=== PATIENT | male | born 1965 | race Caucasian/White ===

== ENCOUNTER 2016-12-03 15:22 | Emergency (ER) | payer OTHER ==
--- NOTE | 2016-12-03 17:54 | DIAGNOSTIC IMAGING REPORT ---
PROCEDURE: XR ANKLE 3 OR 4 VIEWS - RIGHT INDICATION: TRAUMA/INJURY TECHNIQUE: Four views. COMPARISON: None. FINDINGS: Mild soft tissue swelling over the lateral malleolus. Osseous structures and joint spaces are normal. IMPRESSION: 1. Mild soft tissue swelling over the lateral malleolus. 2. Otherwise negative right ankle.
--- NOTE | 2016-12-03 19:27 | DIAGNOSTIC IMAGING REPORT ---
PROCEDURE: XR FOOT 3 VIEWS - RIGHT INDICATION: TRAUMA/INJURY TECHNIQUE: Four views. COMPARISON: None. FINDINGS: There is a 4 mm avulsion fracture of the anterior process of the right os calcis. There mild degenerative change of the right first metatarsal phalangeal joint. The rest of the osseous structures and joint spaces are normal. IMPRESSION: 1. Mildly distracted 4 mm avulsion fracture of the anterior process of the calcaneus. 2. Mild degenerate change of the right first metatarsal phalangeal joint. 3. Otherwise negative right foot. 4. Findings discussed with CHANDRIKA Aburto.
--- NOTE | 2016-12-03 19:48 | ED CLINICAL REPORT ---
Clinical Report - Physicians/Mid Levels [facility] [address] [place] [address] 12/03/2016 15:27 Patient: SUKUMAR OVALLE Time Seen: 18:54; initial patient contact, initial documentation, patient care assumed. Arrived- By private vehicle. Historian- patient. HISTORY OF PRESENT ILLNESS Chief Complaint: Injury to the right foot. The injury happened today. Occurred at work. ( stepping off ladder, slipped or missed a step, stepped into crate and hurt foot). The patient sustained a twisting injury. Patient is experiencing severe pain. Patient denies injury to the head or neck. No other injury. REVIEW OF SYSTEMS The patient sustained a laceration. He complains of pain on weight bearing. He has had swelling. No tingling, weakness or numbness. All systems otherwise negative, except as recorded above. PAST HISTORY See nurses notes. PROBLEMS: Tetanus Status. Laceration. Immunizations. Hypertension. --16:54 Evie Arias R.N. ADDITIONAL SURGERIES: Knee Surgery. Tympanostomy Tubes. --16:54 Evie Arias R.N. SOCIAL HISTORY Light tobacco smoker. Occasional alcohol use. History of occasional drug use: marijuana. No recent travel. Is a local resident. ADDITIONAL NOTES The nursing notes have been reviewed with agreement regarding the chief complaint, HPI, ROS, PMH and patient medications and allergies. PHYSICAL EXAM Vital Signs: 12/03/2016 16:52 BP: 174/92. HR: 91. RR: 18. O2 saturation: 100%. Temp: 98.2 F. Pain level now: 8/10. Have been reviewed as abnormal and appear to be correct. Hypertensive. Heart rate normal. Respiratory rate normal. Temperature normal. Oxygen saturation normal. Appearance: Alert. Oriented X3. No acute distress. Head: Head atraumatic. Eyes: Pupils equal, round and reactive to light. Eyes normal inspection. Respiratory: No respiratory distress. Skin: Skin intact. Skin warm and dry. Extremities: Foot injury present. Right foot: mild tenderness and swelling and medium sized ecchymosis located in the dorsal lateral aspect of the foot. Limited weight bearing secondary to pain. Neurovascular intact distally. No erythema, laceration, abrasion, puncture wound or foreign body. No deformity. No ankle injury. Foot and ankle exam otherwise negative. Extremities otherwise negative. Neuro, Vascular and Tendons: Vascular status intact. Sensation intact. Motor intact. Tendon function intact. Gait: Abnormal gait. Gait not tested due to pain. Neuro: Oriented X 3. No motor deficit. No sensory deficit. Note: isolated injury to foot. LABS, X-RAYS, AND EKG X-Rays: Right ankle negative. Right foot. Rt Ankle X-ray: (IMPRESSION: 1. Mild soft tissue swelling over the lateral malleolus. 2. Otherwise negative right ankle. Electronically Final signed by:Ramon Acuña MD 12/03/2016 5:51:21 PM). The X-rays were interpreted by the radiologist and contemporaneously by me. Rt Foot X-ray: (IMPRESSION: 1. Mildly distracted 4 mm avulsion fracture of the anterior process of the calcaneus. 2. Mild degenerate change of the right first metatarsal phalangeal joint. 3. Otherwise negative right foot. 4. Findings discussed with CHANDRIKA Aburto. Electronically Final signed by:Ramon Acuña MD 12/03/2016 7:23:29 PM). The X-rays were interpreted by the radiologist and contemporaneously by me and discussed with the radiologist. PROGRESS AND PROCEDURES Course of Care: 1946. pt telling me he needs to be at work tomorrow, doesn't want the day off, if not needed 19:50 12/03/16. L&I paperwork completed. Patient counseled in person regarding the patient's stable condition, test results and diagnosis. 19:46. Differential Diagnosis: Other possible considerations: fx, contusion, sprain. Above considerations are based on history, physical exam and X-Ray data. Differential diagnosis was discussed with patient. Disposition: Discharged home in good and improved condition (19:48). Condition: good and stable. CLINICAL IMPRESSION Closed nondisplaced avulsion fracture of the body of the right calcaneus. No transverse, oblique, spiral, segmental or comminuted fracture of the foot. No angulated fracture of the foot. Single contusion to the right foot.No hematoma or skin abrasion. INSTRUCTIONS Apply ice for 20 minutes four times a day for one days until better. Don't apply ice directly to skin. Wear boot orthosis until released. Elevate affected areas above chest level for one days until better. Warnings: GENERAL WARNINGS: Return or contact your physician immediately if your condition worsens or changes unexpectedly, if not improving as expected, or if other problems arise. Specifically return if problem worsens. Prescription Medications: Tigrett 5 mg / 325 mg tablets: take 1 to 2 orally every 6 hours as needed for pain. Dispense fifteen (15). No refills. Substitution is permissible. Motrin 800 mg tablets: take 1 tablet orally every 8 hours as needed for pain. Dispense thirty (30). No refills. Substitution is permissible. Follow-up: Screening today revealed the patient's blood pressure to be in the hypertensive range. The patient should follow up with a primary care provider for blood pressure management. Understanding of the discharge instructions verbalized by patient. Follow-up with: Rich Canchola DPM, Podiatry, , [address] [facility], [place], [address] Follow up in about three days even if well. Call for an appointment. Summary of care provided to patient. (Electronically signed by Lisa Arenas A.R.N.P. 12/03/2016 21:11)
--- NOTE | 2016-12-03 19:48 | ED CLINICAL REPORT ---
Clinical Report - Physicians/Mid Levels [facility] [address] [place] [address] 12/03/2016 15:27 Patient: SUKUMAR OVALLE Time Seen: 18:54; initial patient contact, initial documentation, patient care assumed. Arrived- By private vehicle. Historian- patient. HISTORY OF PRESENT ILLNESS Chief Complaint: Injury to the right foot. The injury happened today. Occurred at work. ( stepping off ladder, slipped or missed a step, stepped into crate and hurt foot). The patient sustained a twisting injury. Patient is experiencing severe pain. Patient denies injury to the head or neck. No other injury. REVIEW OF SYSTEMS The patient sustained a laceration. He complains of pain on weight bearing. He has had swelling. No tingling, weakness or numbness. All systems otherwise negative, except as recorded above. PAST HISTORY See nurses notes. PROBLEMS: Tetanus Status. Laceration. Immunizations. Hypertension. --16:54 Evie Arias R.N. ADDITIONAL SURGERIES: Knee Surgery. Tympanostomy Tubes. --16:54 Evie Arias R.N. SOCIAL HISTORY Light tobacco smoker. Occasional alcohol use. History of occasional drug use: marijuana. No recent travel. Is a local resident. ADDITIONAL NOTES The nursing notes have been reviewed with agreement regarding the chief complaint, HPI, ROS, PMH and patient medications and allergies. PHYSICAL EXAM Vital Signs: 12/03/2016 16:52 BP: 174/92. HR: 91. RR: 18. O2 saturation: 100%. Temp: 98.2 F. Pain level now: 8/10. Have been reviewed as abnormal and appear to be correct. Hypertensive. Heart rate normal. Respiratory rate normal. Temperature normal. Oxygen saturation normal. Appearance: Alert. Oriented X3. No acute distress. Head: Head atraumatic. Eyes: Pupils equal, round and reactive to light. Eyes normal inspection. Respiratory: No respiratory distress. Skin: Skin intact. Skin warm and dry. Extremities: Foot injury present. Right foot: mild tenderness and swelling and medium sized ecchymosis located in the dorsal lateral aspect of the foot. Limited weight bearing secondary to pain. Neurovascular intact distally. No erythema, laceration, abrasion, puncture wound or foreign body. No deformity. No ankle injury. Foot and ankle exam otherwise negative. Extremities otherwise negative. Neuro, Vascular and Tendons: Vascular status intact. Sensation intact. Motor intact. Tendon function intact. Gait: Abnormal gait. Gait not tested due to pain. Neuro: Oriented X 3. No motor deficit. No sensory deficit. Note: isolated injury to foot. LABS, X-RAYS, AND EKG X-Rays: Right ankle negative. Right foot. Rt Ankle X-ray: (IMPRESSION: 1. Mild soft tissue swelling over the lateral malleolus. 2. Otherwise negative right ankle. Electronically Final signed by:Ramon Acuña MD 12/03/2016 5:51:21 PM). The X-rays were interpreted by the radiologist and contemporaneously by me. Rt Foot X-ray: (IMPRESSION: 1. Mildly distracted 4 mm avulsion fracture of the anterior process of the calcaneus. 2. Mild degenerate change of the right first metatarsal phalangeal joint. 3. Otherwise negative right foot. 4. Findings discussed with CHANDRIKA Aburto. Electronically Final signed by:Ramon Acuña MD 12/03/2016 7:23:29 PM). The X-rays were interpreted by the radiologist and contemporaneously by me and discussed with the radiologist. PROGRESS AND PROCEDURES Course of Care: 1946. pt telling me he needs to be at work tomorrow, doesn't want the day off, if not needed 19:50 12/03/16. L&I paperwork completed. Patient counseled in person regarding the patient's stable condition, test results and diagnosis. 19:46. Differential Diagnosis: Other possible considerations: fx, contusion, sprain. Above considerations are based on history, physical exam and X-Ray data. Differential diagnosis was discussed with patient. Disposition: Discharged home in good and improved condition (19:48). Condition: good and stable. CLINICAL IMPRESSION Closed nondisplaced avulsion fracture of the body of the right calcaneus. No transverse, oblique, spiral, segmental or comminuted fracture of the foot. No angulated fracture of the foot. Single contusion to the right foot.No hematoma or skin abrasion. INSTRUCTIONS Apply ice for 20 minutes four times a day for one days until better. Don't apply ice directly to skin. Wear boot orthosis until released. Elevate affected areas above chest level for one days until better. Warnings: GENERAL WARNINGS: Return or contact your physician immediately if your condition worsens or changes unexpectedly, if not improving as expected, or if other problems arise. Specifically return if problem worsens. Prescription Medications: [place]cor[place] 5 mg / 325 mg tablets: take 1 to 2 orally every 6 hours as needed for pain. Dispense fifteen (15). No refills. Substitution is permissible. Motrin 800 mg tablets: take 1 tablet orally every 8 hours as needed for pain. Dispense thirty (30). No refills. Substitution is permissible. Follow-up: Screening today revealed the patient's blood pressure to be in the hypertensive range. The patient should follow up with a primary care provider for blood pressure management. Understanding of the discharge instructions verbalized by patient. Follow-up with: Rich Canchola DPM, Podiatry, , [address] [facility], [address], [place], [address] Follow up in about three days even if well. Call for an appointment. Summary of care provided to patient. (Electronically signed by Lisa Arenas A.R.N.P. 12/03/2016 21:11)
--- NOTE | 2016-12-03 19:48 | ED ORDER SUMMARY ---
..... Patient: SUKUMAR OVALLE OrderSheet [facility] VisitID: [id number] [address] [place] [address] 51y, M Registration Date/Time: 12/03/2016 ORDER SHEET Weight: 104.3 kg (stated) Allergies: No Known Drug Allergy GENERAL ORDERS: Ankle 3 or 4V Right (IN WAITING ROOM) Urgent (17:03 12/03/2016 Miryam R.NYuko per protocol) (Ack 17:16 LTapper) (18:53 MCampbell) Foot 3V Right Urgent (19:01 12/03/2016 HBivens A.R.N.P.) (19:12 [facility] ER Repair Armature Winder Helper) Orthopedic Boot (20:16 12/03/2016 HBivens A.R.N.P.) (20:29 [facility] ER Repair Armature Winder Helper) MEDICATION ORDERS: Hydrocodone-APAP PO 5/325 mg (NOW, HIGH ALERT MEDICATION) (19:01 12/03/2016 HBivens A.R.N.P.) (19:14 Anna Marie R.N.) IV FLUIDS: ORDER SHEET NOTES: [Electronically signed by Elizabeth Miner R.N. (20:29 12/03/2016)] [Electronically signed by Lisa ArenasR.N.P. (21:11 12/03/2016)] [Electronically locked/signed by Elizabeth Miner R.N. (20:29 12/03/2016)]
--- NOTE | 2016-12-03 19:48 | ED ORDER SUMMARY ---
..... Patient: SUKUMAR OVALLE OrderSheet [facility] VisitID: [id number] [address] [place] [address] 51y, M Registration Date/Time: 12/03/2016 ORDER SHEET Weight: 104.3 kg (stated) Allergies: No Known Drug Allergy GENERAL ORDERS: Ankle 3 or 4V Right (IN WAITING ROOM) Urgent (17:03 12/03/2016 Miryam R.NYuko per protocol) (Ack 17:16 LTapper) (18:53 MCampbell) Foot 3V Right Urgent (19:01 12/03/2016 HBivens A.R.N.P.) (19:12 [facility] ER Meat Smoker) Orthopedic Boot (20:16 12/03/2016 HBivens A.R.N.P.) (20:29 [facility] ER Meat Smoker) MEDICATION ORDERS: Hydrocodone-APAP PO 5/325 mg (NOW, HIGH ALERT MEDICATION) (19:01 12/03/2016 HBivens A.R.N.P.) (19:14 Anna Marie R.N.) IV FLUIDS: ORDER SHEET NOTES: [Electronically signed by Elizabeth Miner R.N. (20:29 12/03/2016)] [Electronically signed by Lisa ArenasR.N.P. (21:11 12/03/2016)] [Electronically locked/signed by Elizabeth Miner R.N. (20:29 12/03/2016)]
--- NOTE | 2016-12-03 19:48 | ED NURSING NOTES ---
Clinical Report - Nurses [facility] [address] [place] [address] 12/03/2016 15:27 Patient: SUKUMAR OVALLE TRIAGE Triage time 16:52. Acuity: LEVEL 4. Chief Complaint: FALL OFF A LADDER, onto a wood surface (RIGHT ANKLE PAIN stepped off ladder onto wooden crates). Alert. No acute distress. LIEN COMA SCORE: Lien Coma Scale: 15- eyes open spontaneously (4); best verbal response- oriented x 4 (5); best motor response- obeys commands (6). --16:59 Evie Arias R.N. 16:52 12/03/16. BP: 174/92. HR: 91. RR: 18. O2 saturation: 100% on room air. Temp: 98.2 F (oral). Pain level now: 07/07. --16:59 Evie Arias R.N. Weight: 104.3 kg stated. Height/Length: 73 inches Per Patient. BMI: 30.3. --16:54 Evie Arias R.N. Medications None. --16:53 Evie Arias R.N. Medication/allergy information source: the patient. --16:59 Evie Arias R.N. Allergies No Known Drug Allergy. --16:53 Evie Arias R.N. History Arrived by private vehicle. Historian: patient. Accompanied by family. Primary physician (none). This occurred today. Occurred at work. SOCIAL HX: Heavy tobacco smoker- less than 1 pack per day. Occasional alcohol use. History of drug use: marijuana. LEARNING NEEDS ASSESSMENT: The learning needs assessment revealed no barriers. FALL RISK ASSESSMENT: Fall risk assessment completed. Risk factors identified include patient impairment of mobility. FUNCTIONAL ASSESSMENT: Functional assessment performed: independent with the activities of daily living; mobility impairment present- this mobility impairment is a new problem. --16:59 Evie Arias R.N. PROBLEMS: Tetanus Status. Laceration. Immunizations. Hypertension. --16:54 Evie Arias R.N. ADDITIONAL SURGERIES: Knee Surgery. Tympanostomy Tubes. --16:54 Evie Arias R.N. Assessment GENERAL / NEURO / PSYCH: Alert. Oriented X 4. Appears in no acute distress. Patient appears calm and cooperative. ( bruising noted, pain increases with wt bearing). RESPIRATORY: Respirations not labored. SKIN: Skin is warm and dry. --16:59 Evie Arias R.N. Interventions ID band on patient. To treatment room. --16:59 Evie Arias R.N. PHYSICAL ASSESSMENT GENERAL / NEURO / PSYCH: Alert. Oriented X 4. Appears in no acute distress. HEENT: Pupils equal, round and reactive to light. Head non-tender. RESPIRATORY: Respirations not labored. Chest nontender. Breath sounds within normal limits. CVS: Normal heart rate and rhythm. Pulses within normal limits. Capillary refill less than 2 seconds. GI / : Abdomen soft and nontender. EXTREMITIES: Extremities exhibit normal ROM. Neuro-vascular status intact to the extremity. Right ankle: tenderness, swelling and erythema. SKIN: Skin intact. Skin is warm and dry. --18:27 Xin Zepeda R.N. NURSING PROGRESS NOTES 18:27 12/03/16. BP: 172/88. HR: 93. RR: 18. O2 saturation: 100%. Temp: 98.4 F. Pain level now 8/10. --18:28 Xin Zepeda R.N. 19:14 12/03/2016 Hydrocodone-APAP (Hydrocodone-Acetaminophen) PO 5/325 mg Tablets 1 tab given. Allergies verified, confirmed 5 rights and sedative warning given to the patient's family. --19:14 Xin Zepeda R.N. ( Report given to Jordan YORK). --19:27 Xin Zepeda R.N. 20:20 12/03/16. BP: 186/104. HR: 98. RR: 16. O2 saturation: 100%. Temp: 98.2 F. Pain level now 3/10. --20:20 Elizabeth Miner R.N. 20:22. 3D boot applied to right foot by tech; sensation intact and motor function within normal limits. --20:27 Meron, Christopher, ER Back Line Cook. DISPOSITION / DISCHARGE 20:28 12/03/16. Condition at departure: improved and stable. The goals identified in the patient's plan of care were met. No learning barriers present. Discharge instructions provided and reviewed with the patient. Reviewed medication(s) side effects, precautions, dosing and course information. Prescription(s) given to the patient. Reviewed referral to a grade checker for followup. Patient verbalized understanding. Written instructions provided in [place]. The patient was discharged home and accompanied by family. He left the Emergency Department ambulatory and via private vehicle. Family member driving. --20:29 Elizabeth Miner R.N. 20:20 12/03/16. BP: 186/104. HR: 98. RR: 16. O2 saturation: 100%. Temp: 98.2 F. Pain level now 3/10. --20:29 Elizabeth Miner R.N. Departure time: 20:29 Dec 03 2016. --20:29 Elizabeth Miner R.N. Locked/Released at 12/03/2016 20:29 by Elizabeth Miner R.N.
--- NOTE | 2016-12-03 19:48 | ED NURSING NOTES ---
Clinical Report - Nurses [facility] [address] [place] [address] 12/03/2016 15:27 Patient: SUKUMAR OVALLE TRIAGE Triage time 16:52. Acuity: LEVEL 4. Chief Complaint: FALL OFF A LADDER, onto a wood surface (RIGHT ANKLE PAIN stepped off ladder onto wooden crates). Alert. No acute distress. LIEN COMA SCORE: Lien Coma Scale: 15- eyes open spontaneously (4); best verbal response- oriented x 4 (5); best motor response- obeys commands (6). --16:59 Evie Arias R.N. 16:52 12/03/16. BP: 174/92. HR: 91. RR: 18. O2 saturation: 100% on room air. Temp: 98.2 F (oral). Pain level now: 07/07. --16:59 Evie Arias R.N. Weight: 104.3 kg stated. Height/Length: 73 inches Per Patient. BMI: 30.3. --16:54 Evie Arias R.N. Medications None. --16:53 Evie Arias R.N. Medication/allergy information source: the patient. --16:59 Evie Arias R.N. Allergies No Known Drug Allergy. --16:53 Evie Arias R.N. History Arrived by private vehicle. Historian: patient. Accompanied by family. Primary physician (none). This occurred today. Occurred at work. SOCIAL HX: Heavy tobacco smoker- less than 1 pack per day. Occasional alcohol use. History of drug use: marijuana. LEARNING NEEDS ASSESSMENT: The learning needs assessment revealed no barriers. FALL RISK ASSESSMENT: Fall risk assessment completed. Risk factors identified include patient impairment of mobility. FUNCTIONAL ASSESSMENT: Functional assessment performed: independent with the activities of daily living; mobility impairment present- this mobility impairment is a new problem. --16:59 Evie Arias R.N. PROBLEMS: Tetanus Status. Laceration. Immunizations. Hypertension. --16:54 Evie Arias R.N. ADDITIONAL SURGERIES: Knee Surgery. Tympanostomy Tubes. --16:54 Evie Arias R.N. Assessment GENERAL / NEURO / PSYCH: Alert. Oriented X 4. Appears in no acute distress. Patient appears calm and cooperative. ( bruising noted, pain increases with wt bearing). RESPIRATORY: Respirations not labored. SKIN: Skin is warm and dry. --16:59 Evie Arias R.N. Interventions ID band on patient. To treatment room. --16:59 Evie Arias R.N. PHYSICAL ASSESSMENT GENERAL / NEURO / PSYCH: Alert. Oriented X 4. Appears in no acute distress. HEENT: Pupils equal, round and reactive to light. Head non-tender. RESPIRATORY: Respirations not labored. Chest nontender. Breath sounds within normal limits. CVS: Normal heart rate and rhythm. Pulses within normal limits. Capillary refill less than 2 seconds. GI / : Abdomen soft and nontender. EXTREMITIES: Extremities exhibit normal ROM. Neuro-vascular status intact to the extremity. Right ankle: tenderness, swelling and erythema. SKIN: Skin intact. Skin is warm and dry. --18:27 Xin Zepeda R.N. NURSING PROGRESS NOTES 18:27 12/03/16. BP: 172/88. HR: 93. RR: 18. O2 saturation: 100%. Temp: 98.4 F. Pain level now 8/10. --18:28 Xin Zepeda R.N. 19:14 12/03/2016 Hydrocodone-APAP (Hydrocodone-Acetaminophen) PO 5/325 mg Tablets 1 tab given. Allergies verified, confirmed 5 rights and sedative warning given to the patient's family. --19:14 Xin Zepeda R.N. ( Report given to Jordan YORK). --19:27 Xin Zepeda R.N. 20:20 12/03/16. BP: 186/104. HR: 98. RR: 16. O2 saturation: 100%. Temp: 98.2 F. Pain level now 3/10. --20:20 Elizabeth Miner R.N. 20:22. 3D boot applied to right foot by tech; sensation intact and motor function within normal limits. --20:27 Meron, Christopher, ER Moveman. DISPOSITION / DISCHARGE 20:28 12/03/16. Condition at departure: improved and stable. The goals identified in the patient's plan of care were met. No learning barriers present. Discharge instructions provided and reviewed with the patient. Reviewed medication(s) side effects, precautions, dosing and course information. Prescription(s) given to the patient. Reviewed referral to a digital computer systems analyst for followup. Patient verbalized understanding. Written instructions provided in [place]. The patient was discharged home and accompanied by family. He left the Emergency Department ambulatory and via private vehicle. Family member driving. --20:29 Elizabeth Miner R.N. 20:20 12/03/16. BP: 186/104. HR: 98. RR: 16. O2 saturation: 100%. Temp: 98.2 F. Pain level now 3/10. --20:29 Elizabeth Miner R.N. Departure time: 20:29 Dec 03 2016. --20:29 Elizabeth Miner R.N. Locked/Released at 12/03/2016 20:29 by Elizabeth Miner R.N.
--- NOTE | 2016-12-03 21:12 | ED MED RECONCILIATION SUMMARY ---
Patient: SUKUMAR OVALLE Medication Reconciliation Report [facility] VisitID: [id number] [address] [place] [address] 51y, M Registration Date/Time: 12/03/2016 Weight: 104.3 kg Height/Length: 73 in. BMI: 30.3 ALLERGIES: No Known Drug Allergy The patient's Home Medications are listed below: NONE. The source(s) of the original Home Medication information: patient The following Medications were given to the patient in the Emergency Department: Hydrocodone-APAP [PO] PO 1 tab, administered: 12/03/2016 7:14:00 PM The following Medications were prescribed to the patient: [place] 5 mg / 325 mg tablets: take 1 to 2 orally every 6 hours as needed for pain. Dispense fifteen (15). No refills. Substitution is permissible. -- Lisa Arenas, A.R.N.P. Motrin 800 mg tablets: take 1 tablet orally every 8 hours as needed for pain. Dispense thirty (30). No refills. Substitution is permissible. -- Lisa Arenas, A.R.N.P.
--- NOTE | 2016-12-03 21:12 | ED MAR SUMMARY ---
..... Medication Administration Record [facility] [address] [place] [address] Patient: SUKUMAR OVALLE Visit ID: [id number] 51y, M Weight: 104.3 kg Height/Length: 73 in BMI: 30.3 ALLERGIES: No Known Drug Allergy Given 19:14 12/03/2016 Xin Zepeda R.N. Medication Administered: HYDROCODONE-APAP [PO] (HYDROCODONE-ACETAMINOPHEN), Dose: 1 tab 5/325 mg Tablets PO. Medication Ordered: Hydrocodone-APAP PO 5/325 mg (NOW, HIGH ALERT MEDICATION).
--- NOTE | 2016-12-03 21:12 | ED MED RECONCILIATION SUMMARY ---
Patient: SUKUMAR OVALLE Medication Reconciliation Report [facility] VisitID: [id number] [address] [place] [address] 51y, M Registration Date/Time: 12/03/2016 Weight: 104.3 kg Height/Length: 73 in. BMI: 30.3 ALLERGIES: No Known Drug Allergy The patient's Home Medications are listed below: NONE. The source(s) of the original Home Medication information: patient The following Medications were given to the patient in the Emergency Department: Hydrocodone-APAP [PO] PO 1 tab, administered: 12/03/2016 7:14:00 PM The following Medications were prescribed to the patient: [place] 5 mg / 325 mg tablets: take 1 to 2 orally every 6 hours as needed for pain. Dispense fifteen (15). No refills. Substitution is permissible. -- Lisa Arenas, A.R.N.P. Motrin 800 mg tablets: take 1 tablet orally every 8 hours as needed for pain. Dispense thirty (30). No refills. Substitution is permissible. -- Lisa Arenas, A.R.N.P.
--- NOTE | 2016-12-03 21:12 | ED DISCHARGE INSTRUCTIONS ---
Patient: SUKUMAR OVALLE General Instructions [facility] VisitID: [id number] [address] [place] [address] 51y, M Registration Date/Time: 12/03/2016 Closed nondisplaced avulsion fracture of the body of the right calcaneus. No transverse, oblique, spiral, segmental or comminuted fracture of the foot. No angulated fracture of the foot. Single contusion to the right foot.No hematoma or skin abrasion. INSTRUCTIONS Apply ice for 20 minutes four times a day for one days until better. Don't apply ice directly to skin. Wear boot orthosis until released. Elevate affected areas above chest level for one days until better. Warnings: GENERAL WARNINGS: Return or contact your physician immediately if your condition worsens or changes unexpectedly, if not improving as expected, or if other problems arise. Specifically return if problem worsens. Prescription Medications: [place] 5 mg / 325 mg tablets: take 1 to 2 orally every 6 hours as needed for pain. Dispense fifteen (15). No refills. Substitution is permissible. Motrin 800 mg tablets: take 1 tablet orally every 8 hours as needed for pain. Dispense thirty (30). No refills. Substitution is permissible. Follow-up: Screening today revealed the patient's blood pressure to be in the hypertensive range. The patient should follow up with a primary care provider for blood pressure management. Understanding of the discharge instructions verbalized by patient. Follow-up with: Rich Canchola DPM, Podiatry, , [address], [place], [address] Follow up in about three days even if well. Call for an appointment. Summary of care provided to patient. ADDITIONAL INFORMATION Contusion: Foot You have a CONTUSION of your foot. This causes local pain, swelling and sometimes bruising. There are no broken bones. This injury may take from a few days to a few weeks to heal. Home Care: 1) Keep your LEG elevated to reduce pain and swelling. This is very important during the first 48 hours. If walking causes pain, stay off the injured leg until you can walk without pain. 2) If CRUTCHES have been advised, do not bear full weight on the injured leg until you can do so without pain. You may return to sports when you are able to hop and run on the injured leg without pain. 3) Make an ice pack (ice cubes in a plastic bag, wrapped in a towel) and apply for 20 minutes every 1-2 hours the first day. Continue this 3-4 times a day until the swelling goes down. 4) You may use acetaminophen (Tylenol) or ibuprofen (Motrin, Advil) to control pain, unless another pain medicine was prescribed. [ NOTE : If you have chronic liver or kidney disease or ever had a stomach ulcer or GI bleeding, talk with your doctor before using these medicines.] Follow Up with your doctor or this facility if you are not starting to improve within the next THREE days. [NOTE: If X-rays were taken, they will be reviewed by a radiologist. You will be notified of any new findings that may affect your care.] Get Prompt Medical Attention if any of the following occur: -- Pain or swelling increases -- Toes become cold, blue, numb or tingly -- Redness, warmth or drainage from the skin Fracture:Foot You have a fracture (break) of one of the bones in your foot. This will cause pain, swelling and sometimes bruising. It will take about 4-6 weeks to heal. A foot fracture may be treated with a special shoe, splint, cast or boot. Home Care: You may be given a splint, cast, shoe or boot to prevent movement at the injury. Unless you were told otherwise, use crutches or a walker and do not bear weight on the injured foot until cleared by your doctor to do so. (Crutches and walkers can be rented at many pharmacies and surgical/orthopedic supply stores). Do not put weight on a splint; it will break. Keep your leg elevated to reduce pain and swelling. When sleeping, place a pillow under the injured leg. When sitting, support the injured leg so it is level with your waist. This is very important during the first 48 hours. Apply an ice pack (ice cubes in a plastic bag, wrapped in a towel) over the injured area for 20 minutes every 1-2 hours the first day. You can place the ice pack directly over the splint/cast. Unless told otherwise, you can open the boot or shoe to apply ice. Continue with ice packs 3-4 times a day for the next two days, then as needed for the relief of pain and swelling. Keep the splint/cast/boot/shoe dry. When bathing, protect it with a large plastic bag, rubber-banded at the top end. If a fiberglass splint/cast or boot gets wet, you can dry it with a hair-dryer. Unless told otherwise, you can remove a boot or shoe to bathe. You may use acetaminophen (Tylenol) or ibuprofen (Motrin, Advil) to control pain, unless another pain medicine was prescribed. [NOTE: If you have chronic liver or kidney disease or ever had a stomach ulcer or GI bleeding, talk with your doctor before using these medicines.] Follow Up with your doctor within one week, or as advised by our staff, to be sure the bone is healing properly. If you were given a splint, it may be changed to a cast or boot at your follow-up visit.[NOTE: A radiologist will review any X-rays that were taken. We will notify you of any new findings that may affect your care.] Get Prompt Medical Attention if any of the following occur: The plaster cast or splint becomes wet or soft The fiberglass cast or splint remains wet for more than 24 hours Increased tightness or pain under the cast or splint Toes become swollen, cold, blue, numb or tingly Aircast Sp-Walker Boot Traditional splints and casts for the foot and ankle protect the injury by preventing movement at the joints. However, many injuries heal better and faster if the injured joint can be moved, while protected at the same time. This is the reason for using an Aircast Walker boot. This is a short boot that provides support and protection to the foot and ankle while allowing you to walk. It contains padded air cells that provide compression and help circulation. It is used for both foot and ankle injuries - both sprains and minor fractures. Ankle and foot sprains can take 4-6 weeks to heal. Persons with severe injuries or over age 60 may require more time to heal. During that time, you are prone to re-injury by suddenly twisting your foot or ankle again while the ligaments are still weak. When treating a sprain, the AirCast Walker boot should be worn whenever walking for at least four weeks, or as long as you continue to have ankle pain. Talk to your doctor for specific advice about the treatment of your condition. Air-Stirrup and SP-Walker are trademarks of [employer]. For more information about their products, see www.[employer]. Hydrocodone Bitartrate, Acetaminophen Oral tablet What is this medicine? ACETAMINOPHEN; HYDROCODONE (a set a GHULAM ignacio fen; fercho droe KOE done) is a pain reliever. It is used to treat mild to moderate pain. How should I use this medicine? Take this medicine by mouth. Swallow it with a full glass of water. Follow the directions on the prescription label. If the medicine upsets your stomach, take the medicine with food or milk. Do not take more than you are told to take. Talk to your dental financial coordinator regarding the use of this medicine in children. This medicine is not approved for use in children. What side effects may I notice from receiving this medicine? Side effects that you should report to your doctor or health personal care home administrator as soon as possible: allergic reactions like skin rash, itching or hives, swelling of the face, lips, or tongue breathing problems confusion feeling faint or lightheaded, falls stomach pain yellowing of the eyes or skin Side effects that usually do not require medical attention (report to your doctor or health personal care home administrator if they continue or are bothersome): nausea, vomiting stomach upset What may interact with this medicine? alcohol antihistamines isoniazid medicines for depression, anxiety, or psychotic disturbances medicines for sleep muscle relaxants naltrexone narcotic medicines (opiates) for pain phenobarbital ritonavir tramadol What if I miss a dose? If you miss a dose, take it as soon as you can. If it is almost time for your next dose, take only that dose. Do not take double or extra doses. Where should I keep my medicine? Keep out of the reach of children. This medicine can be abused. Keep your medicine in a safe place to protect it from theft. Do not share this medicine with anyone. Selling or giving away this medicine is dangerous and against the law. Store at room temperature between 15 and 30 degrees C (59 and 86 degrees F). Protect from light. Keep container tightly closed. Throw away any unused medicine after the expiration date. Discard unused medicine and used packaging carefully. Pets and children can be harmed if they find used or lost packages. What should I tell my health care provider before I take this medicine? They need to know if you have any of these conditions: brain tumor Crohn's disease, inflammatory bowel disease, or ulcerative colitis drink more than 3 alcohol-containing drinks per day drug abuse or addiction head injury heart or circulation problems kidney disease or problems going to the bathroom liver disease lung disease, asthma, or breathing problems an unusual or allergic reaction to acetaminophen, hydrocodone, other opioid analgesics, other medicines, foods, dyes, or preservatives or trying to get breast-feeding What should I watch for while using this medicine? Tell your doctor or health personal care home administrator if your pain does not go away, if it gets worse, or if you have new or a different type of pain. You may develop tolerance to the medicine. Tolerance means that you will need a higher dose of the medicine for pain relief. Tolerance is normal and is expected if you take the medicine for a long time. Do not suddenly stop taking your medicine because you may develop a severe reaction. Your body becomes used to the medicine. This does NOT mean you are addicted. Addiction is a behavior related to getting and using a drug for a non-medical reason. If you have pain, you have a medical reason to take pain medicine. Your doctor will tell you how much medicine to take. If your doctor wants you to stop the medicine, the dose will be slowly lowered over time to avoid any side effects. You may get drowsy or dizzy when you first start taking the medicine or change doses. Do not drive, use machinery, or do anything that may be dangerous until you know how the medicine affects you. Stand or sit up slowly. There are different types of narcotic medicines (opiates) for pain. If you take more than one type at the same time, you may have more side effects. Give your health care provider a list of all medicines you use. Your doctor will tell you how much medicine to take. Do not take more medicine than directed. Call emergency for help if you have problems breathing. The medicine will cause constipation. Try to have a bowel movement at least every 2 to 3 days. If you do not have a bowel movement for 3 days, call your doctor or health personal care home administrator. Too much acetaminophen can be very dangerous. Do not take Tylenol (acetaminophen) or medicines that contain acetaminophen with this medicine. Many non-prescription medicines contain acetaminophen. Always read the labels carefully. Ibuprofen Oral tablet What is this medicine? IBUPROFEN (eye BYOO proe fen) is a non-steroidal anti-inflammatory drug (NSAID). It is used for dental pain, fever, headaches or migraines, osteoarthritis, rheumatoid arthritis, or painful monthly periods. It can also relieve minor aches and pains caused by a cold, flu, or sore throat. How should I use this medicine? Take this medicine by mouth with a glass of water. Follow the directions on the prescription label. Take this medicine with food if your stomach gets upset. Try to not lie down for at least 10 minutes after you take the medicine. Take your medicine at regular intervals. Do not take your medicine more often than directed. A special MedGuide will be given to you by the pharmacist with each prescription and refill. Be sure to read this information carefully each time. Talk to your dental financial coordinator regarding the use of this medicine in children. Special care may be needed. What side effects may I notice from receiving this medicine? Side effects that you should report to your doctor or health personal care home administrator as soon as possible: allergic reactions like skin rash, itching or hives, swelling of the face, lips, or tongue black or bloody stools, blood in the urine or in vomit breathing problems changes in vision chest pain general ill feeling or flu-like symptoms nausea or vomiting redness, blistering, peeling or loosening of the skin, including inside the mouth slurred speech or weakness on one side of the body stomach pain unexplained weight gain or swelling unusually weak or tired yellowing of eyes or skin Side effects that usually do not require medical attention (report to your doctor or health personal care home administrator if they continue or are bothersome): constipation or diarrhea dizziness gas or heartburn stomach upset What may interact with this medicine? Do not take this medicine with any of the following medications: cidofovir ketorolac methotrexate pemetrexed This medicine may also interact with the following medications: alcohol aspirin diuretics lithium other drugs for inflammation like prednisone warfarin What if I miss a dose? If you miss a dose, take it as soon as you can. If it is almost time for your next dose, take only that dose. Do not take double or extra doses. Where should I keep my medicine? Keep out of the reach of children. Store at room temperature between 15 and 30 degrees C (59 and 86 degrees F). Keep container tightly closed. Throw away any unused medicine after the expiration date. What should I tell my health care provider before I take this medicine? They need to know if you have any of these conditions: asthma cigarette smoker drink more than 3 alcohol containing drinks a day heart disease or circulation problems such as heart failure or leg edema (fluid retention) high blood pressure kidney disease liver disease stomach bleeding or ulcers an unusual or allergic reaction to ibuprofen, aspirin, other NSAIDS, other medicines, foods, dyes, or preservatives or trying to get breast-feeding What should I watch for while using this medicine? Tell your doctor or healthcare professional if your symptoms do not start to get better or if they get worse. This medicine does not prevent heart attack or stroke. In fact, this medicine may increase the chance of a heart attack or stroke. The chance may increase with longer use of this medicine and in people who have heart disease. If you take aspirin to prevent heart attack or stroke, talk with your doctor or health personal care home administrator. Do not take other medicines that contain aspirin, ibuprofen, or naproxen with this medicine. Side effects such as stomach upset, nausea, or ulcers may be more likely to occur. Many medicines available without a prescription should not be taken with this medicine. This medicine can cause ulcers and bleeding in the stomach and intestines at any time during treatment. Ulcers and bleeding can happen without warning symptoms and can cause . To reduce your risk, do not smoke cigarettes or drink alcohol while you are taking this medicine. You may get drowsy or dizzy. Do not drive, use machinery, or do anything that needs mental alertness until you know how this medicine affects you. Do not stand or sit up quickly, especially if you are an older patient. This reduces the risk of dizzy or fainting spells. This medicine can cause you to bleed more easily. Try to avoid damage to your teeth and gums when you brush or floss your teeth. You have been given the following additional information: Contusion, Foot Fracture, Foot Walker Boot Hydrocodone Bitartrate, Acetaminophen Oral tablet Ibuprofen Oral tablet (Electronically signed by Lisa Arenas A.R.N.P. 12/03/2016 21:11)
--- NOTE | 2016-12-03 21:12 | ED MAR SUMMARY ---
..... Medication Administration Record [facility] [address] [place] [address] Patient: SUKUMAR OVALLE Visit ID: [id number] 51y, M Weight: 104.3 kg Height/Length: 73 in BMI: 30.3 ALLERGIES: No Known Drug Allergy Given 19:14 12/03/2016 Xin Zepeda R.N. Medication Administered: HYDROCODONE-APAP [PO] (HYDROCODONE-ACETAMINOPHEN), Dose: 1 tab 5/325 mg Tablets PO. Medication Ordered: Hydrocodone-APAP PO 5/325 mg (NOW, HIGH ALERT MEDICATION).
== END 2016-12-03 20:29 | disposition home or self-care (01) ==
LOC: ED SRH 15:22
DX: S92.011A Displaced fracture of body of right calcaneus, initial encounter for closed fracture (principal); S90.31XA Contusion of right foot, initial encounter; W11.XXXA Fall on and from ladder, initial encounter; Y93.89 Activity, other specified; Y92.69 Other specified industrial and construction area as the place of occurrence of the external cause; Y99.9 Unspecified external cause status; I10 Essential (primary) hypertension; F17.210 Nicotine dependence, cigarettes, uncomplicated